=== PATIENT | female | born 1965 | race African-American/Black ===

== ENCOUNTER 2018-01-17 23:47 | Emergency (ER) | payer OTHER ==
[~2018-01-17] VITALS: Ht 165.1 cm; Wt 127.0 kg
[~2018-01-17 23:47] MED LIST: BENADRYL25 MG PO; MEDROLDOSEPACK PO; PRINZIDE 20-251 EACH PO; PROVENTIL17 G1 IH
[2018-01-17] MEDS ORDERED: FLONASE 0.05%50 MCG NASAL (23:57)
[2018-01-18] MEDS ORDERED: ALBUTEROL2.5 MG/31 INH (00:46)
[2018-01-18] MEDS ORDERED: VENTOLIN HFA 1818 GM INH (00:46)
[2018-01-18 00:56] VITALS: BP 150/82
== END 2018-01-18 01:06 | disposition home or self-care (01) ==
LOC: ER 23:47
DX: J45.901 Unspecified asthma with (acute) exacerbation (principal); I10 Essential (primary) hypertension